=== PATIENT | female | born 1945 | race Caucasian/White ===

== ENCOUNTER → 2017-03-04 | Outpatient (CLI) | payer MEDICARE, OTHER | LOC: MAMMO 08:16 | DX: Z12.31 Encounter for screening mammogram for malignant neoplasm of breast (principal) | CPT/HCPCS: G0202 ==

== ENCOUNTER → 2017-09-03 | Outpatient (CLI) | payer MEDICARE, OTHER | LOC: RAD 07:55 | DX: S83.242A Other tear of medial meniscus, current injury, left knee, initial encounter (principal); M17.12 Unilateral primary osteoarthritis, left knee; M25.462 Effusion, left knee ==

== ENCOUNTER → 2018-12-22 | Outpatient (CLI) | payer MEDICARE | LOC: MAMMO 10:32 | DX: Z12.31 Encounter for screening mammogram for malignant neoplasm of breast (principal) ==

== ENCOUNTER 2019-02-16 07:21 | Emergency (ER) | payer MEDICARE, OTHER ==
[~2019-02-16] VITALS: Wt 95.0 kg
[2019-02-16] MEDS ORDERED: LOPRESSOR 225 MG/TAB PO (07:37)
[2019-02-16] MEDS ORDERED: SIMVASTATIN20 M1 PO (07:37)
[2019-02-16] MEDS ORDERED: SINGULAIR 110 MG/TAB PO (07:38)
[2019-02-16 07:53] LABS: EOS % 0.3 % (1.0-5.0); HEMATOCRIT 45.4 % (37.0-47.0); HEMOGLOBIN 15.1 g/dL (12.5-16.0); LYMPH# 2.6 (1.50-4.00); MEAN CELL VOLUME 84 fl (78-100); MEAN CORPUSCULAR HEMOGLOBIN 28 pg (27-31); MEAN CORPUSCULAR HGB CONC 33 g/dL (33-37); MEAN PLATELET VOLUME 11.3 fl (7.4-10.4); MONO # 0.6 (0.20-0.80); NEU # 3.1 (1.40-6.50); PLATELET COUNT 244 K/mm3 (130-400); RED BLOOD COUNT 5.44 M/mm3 (4.10-5.30); RED CELL DISTRIBUTION WIDTH 14.2 % (11.5-14.5); WHITE BLOOD COUNT 6.3 K/mm3 (4.8-10.8)
[2019-02-16 08:01] LABS: ALBUMIN 4.2 g/dL (3.4-4.8); POTASSIUM 3.9 mmol/L (3.5-5.1); SODIUM 141 mmol/L (136-145)
[2019-02-16 08:02] LABS: CALCIUM 9.7 mg/dL (8.3-10.5)
[2019-02-16 08:04] LABS: GLUCOSE 149 mg/dL (65-105); TOTAL PROTEIN 7.4 g/dL (6.2-8.1)
[2019-02-16 08:05] LABS: CARBON DIOXIDE 22 mmol/L (23-31)
[2019-02-16 08:06] LABS: TOTAL BILIRUBIN 0.6 mg/dL (0.2-1.2)
[2019-02-16 08:09] LABS: AST-SGOT 21 U/L (5-34)
[2019-02-16 08:10] LABS: ALT/SGPT 28 U/L (0-55)
[2019-02-16 08:11] LABS: PROTHROMBIN TIME 9.5 SECONDS (9.0-12.0)
[2019-02-16 08:21] LABS: TROPONIN-I < 0.03 ng/mL (<0.030)
[2019-02-16] MEDS ORDERED: ELIQUIS5 MG PO (11:42)
[2019-02-16] MEDS ORDERED: MULTAQ400 M1 PO (11:42)
[2019-02-16 11:51] VITALS: BP 112/59
== END 2019-02-16 11:52 | disposition home or self-care (01) ==
LOC: ED 07:21
PROVIDERS: Nurse Practitioner Primary Care
DX: I48.91 Unspecified atrial fibrillation (principal); I10 Essential (primary) hypertension; E78.5 Hyperlipidemia, unspecified
CPT/HCPCS: J2405

== ENCOUNTER 2020-06-07 01:00 | Emergency (ER) | payer MEDICARE, OTHER ==
[~2020-06-07 01:00] MED LIST: ELIQUIS5 MG PO; LOPRESSOR 225 MG/TAB PO; MULTAQ400 M1 PO; SIMVASTATIN20 M1 PO; SINGULAIR 110 MG/TAB PO
[2020-06-07 04:02] VITALS: BP 112/71
[2020-06-07 22:20] LABS: URINE WBC 0 /hpf (0-3)
[2020-06-07 22:22] LABS: URINE COLOR YELLOW
[2020-06-07 22:23] LABS: URINE APPEARANCE CLEAR; URINE BILIRUBIN NEGATIVE (NEGATIVE); URINE BLOOD TRACE (NEGATIVE); URINE GLUCOSE NEGATIVE (NEGATIVE); URINE KETONE NEGATIVE (NEGATIVE); URINE LEUKOCYTE ESTERASE NEGATIVE (NEGATIVE); URINE NITRATE NEGATIVE (NEGATIVE); URINE PROTEIN(semi-quant) TRACE mg/dL (NEGATIVE); URINE UROBILINOGEN NORMAL (NORMAL)
[2020-06-07 22:27] LABS: EOS # 0.1 (0.04-0.40); HEMATOCRIT 44.6 % (37.0-47.0); HEMOGLOBIN 14.8 g/dL (12.5-16.0); LYMPH# 2.3 (1.50-4.00); MEAN CELL VOLUME 84 fl (78-100); MEAN CORPUSCULAR HEMOGLOBIN 28 pg (27-31); MEAN CORPUSCULAR HGB CONC 33 g/dL (33-37); MEAN PLATELET VOLUME 11.3 fl (7.4-10.4); MONO # 0.7 (0.20-0.80); NEU # 2.9 (1.40-6.50); PLATELET COUNT 227 K/mm3 (130-400); RED BLOOD COUNT 5.33 M/mm3 (4.10-5.30); RED CELL DISTRIBUTION WIDTH 14.2 % (11.5-14.5)
[2020-06-07 22:28] LABS: ALBUMIN 4.2 g/dL (3.4-4.8); ALT/SGPT 23 U/L (0-55); AST-SGOT 20 U/L (5-34); CALCIUM 9.2 mg/dL (8.3-10.5); CARBON DIOXIDE 24 mmol/L (23-31); GLUCOSE 123 mg/dL (65-105); POTASSIUM 3.8 mmol/L (3.5-5.1); SODIUM 140 mmol/L (136-145); TOTAL BILIRUBIN 0.5 mg/dL (0.2-1.2); TOTAL PROTEIN 7.5 g/dL (6.2-8.1); TROPONIN-I < 0.03 ng/mL (<0.030)
== END 2020-06-07 04:02 ==
LOC: ED 02:27
PROVIDERS: Nurse Practitioner Family
DX: I48.91 Unspecified atrial fibrillation (principal); I10 Essential (primary) hypertension; E78.5 Hyperlipidemia, unspecified; Z20.822 Contact with and (suspected) exposure to COVID-19; Z79.01 Long term (current) use of anticoagulants; Z79.899 Other long term (current) drug therapy
CPT/HCPCS: J7030

== ENCOUNTER → 2020-08-12 | Outpatient (CLI) | payer MEDICARE, OTHER ==
[~2020-08-12] MED LIST changes: +BETAPACE120 M1 PO; +MASON NATURAL L20 MG PO
== END ==
LOC: LAB 14:24
DX: R30.9 Painful micturition, unspecified (principal)

== ENCOUNTER 2021-01-18 20:47 | Emergency (ER) | payer MEDICARE, OTHER ==
[~2021-01-18] VITALS: Ht 167.6 cm; Wt 90.9 kg
[~2021-01-18 20:47] MED LIST changes: -BETAPACE120 M1 PO; -MASON NATURAL L20 MG PO
[2021-01-18] MEDS ORDERED: BETAPACE120 M1 PO (21:05)
[2021-01-18] MEDS ORDERED: MASON NATURAL L20 MG PO (21:06)
[2021-01-18 23:06] LABS: BASO # 0.02 K/mm3 (0.02-0.10); EOS # 0.06 K/mm3 (0.04-0.40); EOS % 0.8 % (1.0-5.0); HEMOGLOBIN 14.9 g/dL (12.5-16.0); LYMPH# 2.18 K/mm3 (1.50-4.00); MEAN CELL VOLUME 85 fl (78-100); MEAN CORPUSCULAR HEMOGLOBIN 28 pg (27-31); MEAN CORPUSCULAR HGB CONC 33 g/dL (33-37); MEAN PLATELET VOLUME 10.3 fl (7.4-10.4); NEU # 4.74 K/mm3 (1.40-6.50); PLATELET COUNT 246 K/mm3 (130-400); RED BLOOD COUNT 5.28 M/mm3 (4.10-5.30); RED CELL DISTRIBUTION WIDTH 13.9 % (11.5-14.5); WHITE BLOOD COUNT 7.7 K/mm3 (4.8-10.8)
[2021-01-18 23:16] LABS: ALBUMIN 4.2 g/dL (3.4-4.8); POTASSIUM 4.1 mmol/L (3.5-5.1)
[2021-01-18 23:17] LABS: CALCIUM 10.1 mg/dL (8.3-10.5)
[2021-01-18 23:18] LABS: TOTAL PROTEIN 7.7 g/dL (6.2-8.1)
[2021-01-18 23:20] LABS: TOTAL BILIRUBIN 0.4 mg/dL (0.2-1.2)
[2021-01-18 23:57] LABS: URINE WBC 0 /hpf (0-3)
[2021-01-19 00:05] LABS: URINE APPEARANCE CLEAR; URINE BILIRUBIN NEGATIVE (NEGATIVE); URINE BLOOD TRACE (NEGATIVE); URINE COLOR YELLOW; URINE GLUCOSE NEGATIVE (NEGATIVE); URINE KETONE NEGATIVE (NEGATIVE); URINE LEUKOCYTE ESTERASE NEGATIVE (NEGATIVE); URINE NITRATE NEGATIVE (NEGATIVE); URINE PROTEIN(semi-quant) NEGATIVE (NEGATIVE); URINE UROBILINOGEN NORMAL (NORMAL)
[2021-01-19 11:55] VITALS: BP 106/67
== END 2021-01-19 11:55 | disposition short-term general hospital (02) ==
LOC: ED 20:47
PROVIDERS: Nurse Practitioner Family
DX: I48.20 Chronic atrial fibrillation, unspecified (principal); I10 Essential (primary) hypertension; E78.5 Hyperlipidemia, unspecified; Z20.822 Contact with and (suspected) exposure to COVID-19; Z79.01 Long term (current) use of anticoagulants; Z79.899 Other long term (current) drug therapy

== ENCOUNTER → 2021-01-23 | Outpatient (CLI) | payer MEDICARE, OTHER ==
[~2021-01-23] MED LIST changes: +BETAPACE120 M1 PO; +MASON NATURAL L20 MG PO
== END ==
LOC: MAMMO 13:34
DX: Z12.31 Encounter for screening mammogram for malignant neoplasm of breast (principal)

== ENCOUNTER → 2021-06-12 | Outpatient (CLI) | payer MEDICARE, OTHER | LOC: MAMMO 11:30 | DX: Z13.820 Encounter for screening for osteoporosis (principal); M85.80 Other specified disorders of bone density and structure, unspecified site; Z78.0 Asymptomatic menopausal state ==

== ENCOUNTER → 2024-07-14 | Outpatient (CLI) | payer MEDICARE, OTHER | LOC: RAD 10:55 → MAMMO 11:30 | DX: M85.80 Other specified disorders of bone density and structure, unspecified site (principal); Z78.0 Asymptomatic menopausal state ==

== ENCOUNTER → 2024-07-14 | Outpatient (CLI) | payer MEDICARE, OTHER | LOC: MAMMO 10:59 | DX: Z12.31 Encounter for screening mammogram for malignant neoplasm of breast (principal) ==